=== PATIENT | female | born 1985 | race Caucasian/White ===

== ENCOUNTER → 2016-11-08 | Outpatient (CLI) | payer OTHER ==
[~2016-11-08] MED LIST: ASPIRIN81 MG PO; ATARAX25 MG PO; AUGMENTIN 875 M1 TAB PO; BACTRIM DS 8001 TA1 PO; CELEXA40 MG PO; CLINDAMYCIN150 MG PO; CYCLOBENZAPRINE10 MG PO; E MYCIN PO; EC NAPROSYN,NA500 MG PO; FLEXERIL10 MG PO; FOLIC ACID1 MG PO; Fioricet 325 MG1 TAB PO; HYDROCODONE BIT1 T11 PO; IMITREX25 MG PO; LIBRIUM25 MG PO; MOTRIN800 MG PO; Motrin,Rufen800 MG PO; NKHM; NORCO 325 MG-51 TAB PO; PARAFON FORTE500 MG PO; PEPCID20 MG PO; PERCOCET 325 MG1 TA2 PO; PERCOCET 325 MG1 TA5 PO; PONSTEL250 MG PO; PREDNICOT20 MG PO; PRILOSEC40 MG PO; PROAIR HFA0.09 MG/AC INH; QVAR40 MCG INH; REMERON30 MG PO; ROBAXIN750 MG PO; TESSALON PERLE200 MG PO; TRAMADOL HCL50 MG PO; ULTRAM50 MG PO; VERMOX100 MG PO; VIBRAMYCIN100 MG PO; VICODIN 5/500 505 MG PO; VISTARIL25 M1 PO; WELLBUTRIN SR150 MG PO; ZITHROMAX Z PA250 MG PO; ZOFRAN4 MG PO; [UNRECOGNIZED DRUG - OTHER] PO
== END | disposition home or self-care (01) ==
LOC: CT 00:01
DX: R55 Syncope and collapse (principal); X58.XXXA Exposure to other specified factors, initial encounter

== ENCOUNTER 2017-05-10 13:58 | Emergency (ER) | payer OTHER ==
[~2017-05-10] VITALS: Ht 157.4 cm; Wt 54.4 kg
== END 2017-05-10 15:36 | disposition home or self-care (01) ==
LOC: ED 13:58
DX: M79.662 Pain in left lower leg (principal); F17.200 Nicotine dependence, unspecified, uncomplicated; Z88.0 Allergy status to penicillin

== ENCOUNTER 2017-08-29 11:49 | Emergency (ER) | payer OTHER ==
[~2017-08-29] VITALS: Wt 61.2 kg
== END 2017-08-29 14:43 | disposition home or self-care (01) ==
LOC: ED 11:49
DX: Z88.0 Allergy status to penicillin (principal); Z98.51 Tubal ligation status; F17.200 Nicotine dependence, unspecified, uncomplicated; F10.10 Alcohol abuse, uncomplicated; M25.532 Pain in left wrist

== ENCOUNTER → 2017-09-12 | Outpatient (CLI) | payer OTHER | END | disposition home or self-care (01) | LOC: RAD 13:19 | DX: M25.532 Pain in left wrist (principal) ==

== ENCOUNTER 2018-01-11 14:52 | Emergency (ER) | payer OTHER ==
[~2018-01-11] VITALS: Ht 157.4 cm; Wt 54.4 kg
[2018-01-11 15:27] LABS: BASO # 0.1 10*3/uL (0.0-0.1); BASO % 0.6 % (0.0-1.0); EOS # 0.3 10*3/uL (0.0-0.4); EOS % 2.5 % (1.0-4.0); HEMATOCRIT 43.9 % (37.0-47.0); HEMOGLOBIN 16.3 g/dl (12.0-16.0); LYMPH # 3.3 10*3/uL (1.3-4.4); LYMPH % 32.2 % (27.0-41.0); MEAN CELL VOLUME 100.7 fl (81.0-99.0); MEAN CORPUSCULAR HGB 37.4 pg (27.0-31.0); MEAN PLATELET VOLUME 9.3 fl (9.6-12.3); MONO # 0.4 10*3/uL (0.1-1.0); MONO % 3.4 % (3.0-9.0); NEUT # 6.2 10*3/uL (2.3-7.9); NEUT % 61.1 % (47.0-73.0); PLATELET COUNT AUTOMATED 280 10*3/uL (130-400); RED BLOOD COUNT 4.36 10*6/uL (4.10-5.10); RED CELL DISTRI WIDTH 13.9 % (0-14.5); WHITE BLOOD COUNT 10.2 10*3/uL (4.8-10.8)
[2018-01-11 15:43] LABS: ALKALINE PHOSPHATASE 119 U/L (45-117); BUN 7 mg/dl (7-24); CHLORIDE 104 mmol/L (98-107); CREATININE 0.89 mg/dL (0.55-1.02); LIPASE 137 U/L (73-393); MEAN CORPUSCULAR HGB CONC 37.1 g/dl (33.0-37.0); POTASSIUM 3.7 mmol/L (3.5-5.1); SGOT/AST 54 IU/L (3-35); SGPT/ALT 41 U/L (12-78); SODIUM 136 mmol/L (136-145); TOTAL PROTEIN 8.2 gm/dL (6.4-8.2)
[2018-01-11 17:01] LABS: BILIRUBIN 1+ (NEGATIVE); BLOOD NEGATIVE (NEGATIVE); CLARITY SL CLOUDY (CLEAR); COLOR YELLOW (YELLOW); GLUCOSE NEGATIVE (NEGATIVE); KETONE TRACE (NEGATIVE); LEUKO ESTERASE TRACE (NEGATIVE); NITRITE NEGATIVE (NEGATIVE); SPECIFIC GRAVITY 1.025 (1.005-1.030); UROBILINOGEN 0.2 E.U./dl (0.2-1.0)
[2018-01-11 17:07] LABS: RBC 0-2 rbc/hpf (0-2)
[2018-01-11 17:08] LABS: BACTERIA 2+; MUCOUS TRACE; WBC 16-20 wbc/hpf (0-5)
[2018-01-11] MEDS ORDERED: NAPROSYN500 MG PO (17:39)
[2018-01-11] MEDS ORDERED: CYCLOBENZAPRINE10 MG PO (17:39)
== END 2018-01-11 17:39 | disposition home or self-care (01) ==
LOC: ED 14:52
PROVIDERS: Nurse Practitioner Family
DX: S39.011A Strain of muscle, fascia and tendon of abdomen, initial encounter (principal); F17.200 Nicotine dependence, unspecified, uncomplicated; Z98.51 Tubal ligation status; Z98.890 Other specified postprocedural states; Z88.0 Allergy status to penicillin; X50.9XXA Other and unspecified overexertion or strenuous movements or postures, initial encounter; Y93.89 Activity, other specified; Y92.89 Other specified places as the place of occurrence of the external cause; Y99.9 Unspecified external cause status

== ENCOUNTER → 2018-02-24 | Outpatient (CLI) | payer OTHER ==
[~2018-02-24] MED LIST changes: +NAPROSYN500 MG PO
== END | disposition home or self-care (01) ==
LOC: US 10:30
DX: I65.23 Occlusion and stenosis of bilateral carotid arteries (principal); I70.203 Unspecified atherosclerosis of native arteries of extremities, bilateral legs; I75.023 Atheroembolism of bilateral lower extremities; I10 Essential (primary) hypertension; Z72.0 Tobacco use; Z98.890 Other specified postprocedural states; Z95.828 Presence of other vascular implants and grafts

== ENCOUNTER → 2018-03-25 | Outpatient (CLI) | payer OTHER | LOC: RAD 13:46 | DX: M51.36 Other intervertebral disc degeneration, lumbar region (principal); R05 Cough; M25.512 Pain in left shoulder; R06.02 Shortness of breath ==

== ENCOUNTER → 2018-06-04 | Outpatient (CLI) | payer OTHER | END | disposition home or self-care (01) | LOC: MRI 03:33 | DX: M25.512 Pain in left shoulder (principal); M25.612 Stiffness of left shoulder, not elsewhere classified; M62.81 Muscle weakness (generalized) ==

== ENCOUNTER → 2018-10-01 | Outpatient (CLI) | payer OTHER | END | disposition home or self-care (01) | LOC: MAMMO 07:50 | DX: Z12.31 Encounter for screening mammogram for malignant neoplasm of breast (principal); N64.4 Mastodynia; M25.562 Pain in left knee ==

== ENCOUNTER 2019-05-15 18:51 | Emergency (ER) | payer OTHER ==
[~2019-05-15] VITALS: Ht 157.4 cm; Wt 58.1 kg
== END 2019-05-15 20:28 | disposition home or self-care (01) ==
LOC: ED 18:51
DX: S60.021A Contusion of right index finger without damage to nail, initial encounter (principal); S60.031A Contusion of right middle finger without damage to nail, initial encounter; S60.221A Contusion of right hand, initial encounter; M79.642 Pain in left hand; Z88.0 Allergy status to penicillin; W20.8XXA Other cause of strike by thrown, projected or falling object, initial encounter; Y93.89 Activity, other specified; Y92.098 Other place in other non-institutional residence as the place of occurrence of the external cause; Y99.8 Other external cause status

== ENCOUNTER 2019-06-06 10:13 | Emergency (ER) | payer OTHER ==
[~2019-06-06] VITALS: Ht 157.4 cm; Wt 58.1 kg
[2019-06-06] MEDS ORDERED: CLINDAMYCIN HC300 MG PO (10:41)
== END 2019-06-06 11:05 | disposition home or self-care (01) ==
LOC: ED 10:13
DX: S61.502A Unspecified open wound of left wrist, initial encounter (principal); Z88.0 Allergy status to penicillin; W54.0XXA Bitten by dog, initial encounter; Y93.89 Activity, other specified; Y92.89 Other specified places as the place of occurrence of the external cause; Y99.8 Other external cause status

== ENCOUNTER 2019-09-24 17:45 | Emergency (ER) | payer OTHER ==
[~2019-09-24] VITALS: Ht 157.4 cm; Wt 58.1 kg
[~2019-09-24 17:45] MED LIST changes: +CLINDAMYCIN HC300 MG PO
[2019-09-24 18:19] LABS: BASO % 0.5 % (0.0-1.0); EOS # 0.1 10*3/uL (0.0-0.4); HEMATOCRIT 36.7 % (37.0-47.0); HEMOGLOBIN 13.4 g/dl (12.0-16.0); LYMPH # 3.5 10*3/uL (1.3-4.4); MEAN CELL VOLUME 100.5 fl (81.0-99.0); MEAN CORPUSCULAR HGB 36.7 pg (27.0-31.0); MEAN CORPUSCULAR HGB CONC 36.5 g/dl (33.0-37.0); MEAN PLATELET VOLUME 9.3 fl (9.6-12.3); MONO # 0.3 10*3/uL (0.1-1.0); MONO % 3.7 % (3.0-9.0); NEUT # 3.9 10*3/uL (2.3-7.9); NEUT % 49.7 % (47.0-73.0); PLATELET COUNT AUTOMATED 315 10*3/uL (130-400); RED BLOOD COUNT 3.65 10*6/uL (4.10-5.10); RED CELL DISTRI WIDTH 15.2 % (0-14.5); WHITE BLOOD COUNT 7.9 10*3/uL (4.8-10.8)
[2019-09-24 18:32] LABS: ALBUMIN 3.5 gm/dl (3.1-4.5); ALKALINE PHOSPHATASE 98 U/L (45-117); BUN 6 mg/dl (7-24); CHLORIDE 109 mmol/L (98-107); CREATININE 0.78 mg/dL (0.55-1.02); POTASSIUM 3.1 mmol/L (3.5-5.1); SGOT/AST 55 IU/L (3-35); SGPT/ALT 51 U/L (12-78); SODIUM 140 mmol/L (136-145); TOTAL PROTEIN 7.3 gm/dL (6.4-8.2)
[2019-09-24] MEDS ORDERED: PREDNISONE20 M1 PO (19:05)
[2019-09-24] MEDS ORDERED: AVPAK AZITHROM250 MG PO (19:05)
[2019-09-24] MEDS ORDERED: PROVENTIL HFA6.7 GM INH (19:05)
[2019-09-25] MEDS ORDERED: PREDNISONE20 M1 PO (14:35)
[2019-09-25] MEDS ORDERED: AVPAK AZITHROM250 MG PO (14:35)
[2019-09-25] MEDS ORDERED: PROVENTIL HFA6.7 GM INH (14:35)
== END 2019-09-24 19:07 | disposition home or self-care (01) ==
LOC: ED 17:45
PROVIDERS: Nurse Practitioner Family
DX: J20.9 Acute bronchitis, unspecified (principal); R19.7 Diarrhea, unspecified; F17.200 Nicotine dependence, unspecified, uncomplicated; Z88.0 Allergy status to penicillin

== ENCOUNTER → 2019-11-01 | Outpatient (CLI) | payer OTHER ==
[~2019-11-01] MED LIST changes: +AVPAK AZITHROM250 MG PO; +PREDNISONE20 M1 PO; +PROVENTIL HFA6.7 GM INH
== END | disposition home or self-care (01) ==
LOC: RAD 15:59
DX: R06.02 Shortness of breath (principal)

== ENCOUNTER → 2020-01-11 | Outpatient (CLI) | payer OTHER ==
[~2020-01-11] MED LIST changes: +IBUPROFEN600 MG PO
== END | disposition home or self-care (01) ==
LOC: CARD 12:00
DX: R06.02 Shortness of breath (principal); R00.0 Tachycardia, unspecified; R07.89 Other chest pain

== ENCOUNTER 2020-01-13 10:01 | Emergency (ER) | payer OTHER ==
[~2020-01-13] VITALS: Ht 157.4 cm; Wt 56.7 kg
[~2020-01-13 10:01] MED LIST changes: -IBUPROFEN600 MG PO
[2020-01-13] MEDS ORDERED: IBUPROFEN600 MG PO (13:44)
== END 2020-01-13 13:44 | disposition home or self-care (01) ==
LOC: ED 10:01
DX: S83.411A Sprain of medial collateral ligament of right knee, initial encounter (principal); I73.9 Peripheral vascular disease, unspecified; Z88.0 Allergy status to penicillin; Z79.899 Other long term (current) drug therapy; Z79.2 Long term (current) use of antibiotics; Z98.51 Tubal ligation status; X50.1XXA Overexertion from prolonged static or awkward postures, initial encounter; Y93.01 Activity, walking, marching and hiking; Y92.098 Other place in other non-institutional residence as the place of occurrence of the external cause; Y99.8 Other external cause status

== ENCOUNTER → 2020-05-12 | Outpatient (CLI) | payer OTHER ==
[~2020-05-12] MED LIST changes: +IBUPROFEN600 MG PO
== END | disposition home or self-care (01) ==
LOC: US 08:18
DX: R74.0 Nonspecific elevation of levels of transaminase and lactic acid dehydrogenase [LDH] (principal)

== ENCOUNTER 2021-03-08 08:13 | Emergency (ER) | payer OTHER ==
[2021-03-08] MEDS ORDERED: TYLENOL325 M1 PO (08:38)
== END 2021-03-08 09:31 | disposition home or self-care (01) ==
LOC: ED 08:13
DX: M25.571 Pain in right ankle and joints of right foot (principal); M79.671 Pain in right foot; F17.200 Nicotine dependence, unspecified, uncomplicated; Z88.0 Allergy status to penicillin; Z79.899 Other long term (current) drug therapy; Z98.890 Other specified postprocedural states; Z98.51 Tubal ligation status

== ENCOUNTER → 2021-07-20 | Outpatient (CLI) | payer OTHER ==
[~2021-07-20] MED LIST changes: +TYLENOL325 M1 PO
== END | disposition home or self-care (01) ==
LOC: RAD 00:04
PROVIDERS: ATTEND Family Medicine
DX: M25.512 Pain in left shoulder (principal)

== ENCOUNTER → 2022-07-09 | Outpatient (CLI) | payer OTHER ==
[2022-07-09 18:03] LABS: HEMATOCRIT 34.3 % (37.0-47.0); MEAN CELL VOLUME 99.7 fl (81.0-99.0); MEAN CORPUSCULAR HGB 35.5 pg (27.0-31.0); MEAN CORPUSCULAR HGB CONC 35.6 g/dl (33.0-37.0); MEAN PLATELET VOLUME 9.7 fl (9.6-12.3); PLATELET COUNT AUTOMATED 193 10*3/uL (130-400); RED BLOOD COUNT 3.44 10*6/uL (4.10-5.10); RED CELL DISTRI WIDTH 14.1 % (0-14.5)
[2022-07-09 18:06] LABS: MANUAL DIFF REFLEX YES
[2022-07-09 19:01] LABS: ATYPICAL LYMPHS 2 % (0-0); BASOPHILS 1 % (0-1); PLATELET SUFFICIENCY NORMAL (NORMAL); TOTAL CELLS COUNTED 100 #CELLS
== END | disposition home or self-care (01) ==
LOC: LAB 16:04
PROVIDERS: ATTEND Student in an Organized Health Care Education/Training Program
DX: E53.8 Deficiency of other specified B group vitamins (principal)

== ENCOUNTER → 2022-09-19 | Outpatient (CLI) | payer OTHER | END | disposition home or self-care (01) | LOC: MAMMO 00:22 | PROVIDERS: ATTEND Nurse Practitioner Women's Health | DX: N63.14 Unspecified lump in the right breast, lower inner quadrant (principal); R59.0 Localized enlarged lymph nodes ==

== ENCOUNTER → 2022-11-18 | Outpatient (CLI) | payer OTHER | END | disposition home or self-care (01) | LOC: CT 11-14 09:00 | PROVIDERS: ATTEND Specialist | DX: J39.2 Other diseases of pharynx (principal); J34.2 Deviated nasal septum; J01.91 Acute recurrent sinusitis, unspecified ==

== ENCOUNTER → 2023-02-28 | Outpatient (CLI) | payer OTHER | END | disposition home or self-care (01) | LOC: RAD 01:11 | PROVIDERS: ATTEND Family Medicine | DX: N12 Tubulo-interstitial nephritis, not specified as acute or chronic (principal) ==

== ENCOUNTER 2023-07-14 12:08 | Emergency (ER) | payer OTHER ==
[~2023-07-14] VITALS: Ht 157.4 cm; Wt 49.0 kg
[2023-07-14] MEDS ORDERED: ERYTHROMYCIN OPH1 GM OPH (12:54)
== END 2023-07-14 13:04 | disposition home or self-care (01) ==
LOC: ED 12:08
DX: H00.025 Hordeolum internum left lower eyelid (principal); Z88.0 Allergy status to penicillin; Z98.51 Tubal ligation status

== ENCOUNTER → 2023-07-21 | Outpatient (CLI) | payer OTHER ==
[~2023-07-21] MED LIST changes: +ERYTHROMYCIN OPH1 GM OPH
[2023-07-21 12:34] LABS: BASO # 0.1 10*3/uL (0.0-0.1); BASO % 0.8 % (0.0-1.0); EOS # 0.3 10*3/uL (0.0-0.4); EOS % 2.3 % (1.0-4.0); HEMATOCRIT 45.5 % (37.0-47.0); LYMPH # 4.7 10*3/uL (1.3-4.4); LYMPH % 38.3 % (27.0-41.0); MEAN CELL VOLUME 92.3 fl (81.0-99.0); MEAN CORPUSCULAR HGB 33.7 pg (27.0-31.0); MEAN CORPUSCULAR HGB CONC 36.5 g/dl (33.0-37.0); MEAN PLATELET VOLUME 10.3 fl (9.6-12.3); MONO # 0.4 10*3/uL (0.1-1.0); MONO % 3.5 % (3.0-9.0); NEUT # 6.7 10*3/uL (2.3-7.9); NEUT % 54.9 % (47.0-73.0); PLATELET COUNT AUTOMATED 299 10*3/uL (130-400); RED BLOOD COUNT 4.93 10*6/uL (4.10-5.10); RED CELL DISTRI WIDTH 13.4 % (0-14.5); WHITE BLOOD COUNT 12.2 10*3/uL (4.8-10.8)
[2023-07-21 13:02] LABS: ALKALINE PHOSPHATASE 141 U/L (46-116); BUN 8 mg/dl (9-23); CHLORIDE 105 mmol/L (98-107); CHOLESTEROL 202 mg/dL (<200); LDL CHOLESTEROL 130 mg/dL (9-159); POTASSIUM 3.5 mmol/L (3.4-5.1); SGPT/ALT 20 U/L (10-49); TOTAL PROTEIN 8.8 gm/dL (6.0-8.0); TRIGLYCERIDES 135 mg/dl (<150)
== END | disposition home or self-care (01) ==
LOC: LAB 12:10
PROVIDERS: Occupational Therapist; ATTEND Family Medicine
DX: E72.11 Homocystinuria (principal); R23.8 Other skin changes; E78.5 Hyperlipidemia, unspecified; Z86.73 Personal history of transient ischemic attack (TIA), and cerebral infarction without residual deficits

== ENCOUNTER → 2023-10-07 | Outpatient (CLI) | payer OTHER ==
[2023-10-07 13:33] LABS: BASO # 0.1 10*3/uL (0.0-0.1); BASO % 0.5 % (0.0-1.0); EOS # 0.2 10*3/uL (0.0-0.4); EOS % 2.2 % (1.0-4.0); LYMPH # 4.4 10*3/uL (1.3-4.4); LYMPH % 44.2 % (27.0-41.0); MEAN CELL VOLUME 94.1 fl (81.0-99.0); MEAN CORPUSCULAR HGB 33.9 pg (27.0-31.0); MEAN CORPUSCULAR HGB CONC 36.1 g/dl (33.0-37.0); MEAN PLATELET VOLUME 9.4 fl (9.6-12.3); MONO # 0.4 10*3/uL (0.1-1.0); MONO % 4.5 % (3.0-9.0); NEUT # 4.8 10*3/uL (2.3-7.9); NEUT % 48.4 % (47.0-73.0); PLATELET COUNT AUTOMATED 232 10*3/uL (130-400); RED BLOOD COUNT 4.04 10*6/uL (4.10-5.10); RED CELL DISTRI WIDTH 12.8 % (0-14.5); RETICULOCYTE % 1.93 % (0.50-2.50); WHITE BLOOD COUNT 9.8 10*3/uL (4.8-10.8)
[2023-10-07 13:56] LABS: BUN 14 mg/dl (9-23)
== END | disposition home or self-care (01) ==
LOC: LAB 13:04
PROVIDERS: ATTEND Nurse Practitioner Family
DX: Z79.899 Other long term (current) drug therapy (principal)

== ENCOUNTER → 2023-12-04 | Outpatient (CLI) | payer OTHER | END | disposition home or self-care (01) | LOC: LAB 01:39 → MAMMO 08:00 → LAB 08:00 | PROVIDERS: ATTEND Nurse Practitioner Women's Health | DX: N60.01 Solitary cyst of right breast (principal) ==

== ENCOUNTER → 2023-12-30 | Outpatient (CLI) | payer OTHER ==
[~2023-12-30] MED LIST changes: +AMOX-CLAV 875-1 EACH PO; +ASPIRIN CHEWABL81 MG PO; +COLACE100 MG PO; +Gadoxetate Disodium 10 ML SOL IV ONE; +HYDROCODONE-AC1 EAC1 PO; +ROSUVASTATIN CA40 MG PO; +SODIUM CHLORIDE 0.9% 50 ML IV ONE
== END | disposition home or self-care (01) ==
LOC: MRI 02:08
PROVIDERS: ATTEND Occupational Therapist
DX: K76.89 Other specified diseases of liver (principal); R16.0 Hepatomegaly, not elsewhere classified; K74.60 Unspecified cirrhosis of liver

== ENCOUNTER 2024-03-01 19:31 | Emergency (ER) | payer OTHER ==
[~2024-03-01] VITALS: Wt 44.5 kg
[~2024-03-01 19:31] MED LIST changes: -Gadoxetate Disodium 10 ML SOL IV ONE; -SODIUM CHLORIDE 0.9% 50 ML IV ONE
[2024-03-01] MEDS ORDERED: NAPROSYN500 MG PO (20:20)
== END 2024-03-01 21:00 | disposition home or self-care (01) ==
LOC: ED 19:31
DX: S83.92XA Sprain of unspecified site of left knee, initial encounter (principal); D64.9 Anemia, unspecified; Z88.0 Allergy status to penicillin; Z98.51 Tubal ligation status; Z98.890 Other specified postprocedural states; Z90.49 Acquired absence of other specified parts of digestive tract; F17.210 Nicotine dependence, cigarettes, uncomplicated; F12.90 Cannabis use, unspecified, uncomplicated; X50.1XXA Overexertion from prolonged static or awkward postures, initial encounter; Y93.89 Activity, other specified; Y92.89 Other specified places as the place of occurrence of the external cause; Y99.8 Other external cause status

== ENCOUNTER 2024-03-27 09:37 | Emergency (ER) | payer OTHER ==
[~2024-03-27] VITALS: Ht 157.4 cm; Wt 47.2 kg
[2024-03-27] MEDS ORDERED: PREDNISONE50 MG PO (10:24)
[2024-03-27] MEDS ORDERED: Ketorolac Tromethamine 30 MG/ML VIAL IM ONE (10:25)
== END 2024-03-27 10:35 | disposition home or self-care (01) ==
LOC: ED 09:37
DX: M54.2 Cervicalgia (principal); M25.512 Pain in left shoulder; R51.9 Headache, unspecified; F17.210 Nicotine dependence, cigarettes, uncomplicated; Z88.0 Allergy status to penicillin; Z79.899 Other long term (current) drug therapy; Z79.2 Long term (current) use of antibiotics; Z79.82 Long term (current) use of aspirin; Z98.890 Other specified postprocedural states; Z98.51 Tubal ligation status; Z90.49 Acquired absence of other specified parts of digestive tract

== ENCOUNTER 2025-10-11 18:39 | Emergency (ER) | payer OTHER ==
[~2025-10-11] VITALS: Ht 157.4 cm; Wt 49.0 kg
[~2025-10-11 18:39] MED LIST changes: +PREDNISONE50 MG PO
[2025-10-11] MEDS ORDERED: Metoclopramide Hydrochloride 10 MG/2 ML VIAL IV ONE (19:20)
[2025-10-11] MEDS ORDERED: SODIUM CHLORIDE 0.9% 1,000 ML IV ONE (19:20)
[2025-10-11] MEDS ORDERED: diphenhydrAMINE hydrochloride 50 MG/ML VIAL IV ONE (19:25)
== END 2025-10-11 21:02 | disposition home or self-care (01) ==
LOC: ED 18:39
DX: S09.90XA Unspecified injury of head, initial encounter (principal); E78.5 Hyperlipidemia, unspecified; Z90.49 Acquired absence of other specified parts of digestive tract; Z98.890 Other specified postprocedural states; Z88.0 Allergy status to penicillin; W22.8XXA Striking against or struck by other objects, initial encounter; Y93.89 Activity, other specified; Y92.89 Other specified places as the place of occurrence of the external cause; Y99.8 Other external cause status